=== PATIENT | female | born 1955 | race Caucasian/White ===

== ENCOUNTER → 2020-06-07 | Outpatient (CLI) | payer OTHER | LOC: SJCVC 13:14 | PROVIDERS: ATTEND Internal Medicine | DX: R06.00 Dyspnea, unspecified (principal); I10 Essential (primary) hypertension; E78.5 Hyperlipidemia, unspecified; E11.9 Type 2 diabetes mellitus without complications; G47.33 Obstructive sleep apnea (adult) (pediatric); M06.9 Rheumatoid arthritis, unspecified; J45.909 Unspecified asthma, uncomplicated; R00.2 Palpitations; M17.11 Unilateral primary osteoarthritis, right knee; Z90.710 Acquired absence of both cervix and uterus; Z98.890 Other specified postprocedural states; Z88.0 Allergy status to penicillin; Z79.82 Long term (current) use of aspirin; Z79.84 Long term (current) use of oral hypoglycemic drugs; Z79.899 Other long term (current) drug therapy; Z87.891 Personal history of nicotine dependence ==

== ENCOUNTER → 2020-06-17 | Outpatient (CLI) | payer OTHER | LOC: SJCVCIMAG 07:28 | PROVIDERS: ATTEND Internal Medicine | DX: I08.0 Rheumatic disorders of both mitral and aortic valves (principal); R06.00 Dyspnea, unspecified; J45.909 Unspecified asthma, uncomplicated; I10 Essential (primary) hypertension; G62.9 Polyneuropathy, unspecified; M17.11 Unilateral primary osteoarthritis, right knee; M06.9 Rheumatoid arthritis, unspecified; Z86.79 Personal history of other diseases of the circulatory system; Z22.0 Carrier of typhoid; Z87.891 Personal history of nicotine dependence; Z72.89 Other problems related to lifestyle; Z79.82 Long term (current) use of aspirin; Z79.899 Other long term (current) drug therapy; Z79.84 Long term (current) use of oral hypoglycemic drugs; Z87.39 Personal history of other diseases of the musculoskeletal system and connective tissue; Z88.0 Allergy status to penicillin ==

== ENCOUNTER → 2020-06-21 | Outpatient (CLI) | payer OTHER | LOC: CAT 11:03 | PROVIDERS: ATTEND Internal Medicine | DX: I25.10 Atherosclerotic heart disease of native coronary artery without angina pectoris (principal); N28.1 Cyst of kidney, acquired ==

== ENCOUNTER → 2020-07-09 | Outpatient (CLI) | payer OTHER, MEDICARE ==
[~2020-07-09] MED LIST: ASA81BEC PO; BREO ELLIPTA 11 EACH INH; CELEBREX 200 M200 M1 PO; CYMBALTA60 MG PO; DILTIAZEM ER180 M2 PO; LIPITOR 20 MG T20 M1 PO; LISINOPRIL20 MG PO; METFORMIN HCL500 M3 PO; NEURONTIN600 MG PO; NORCO7.5 PO; PLAQUENIL200 MG PO; PROAIR HFA8.5 GM INH; PROTONIX40 M2 PO; SINGULAIR 10 MG10 MG PO; SYNTHROID137 MC1 PO; WELLBUTRIN XL300 MG PO
== END ==
LOC: SJCVC 13:50
PROVIDERS: ATTEND Internal Medicine
DX: R06.00 Dyspnea, unspecified (principal); I10 Essential (primary) hypertension; E78.5 Hyperlipidemia, unspecified; E11.9 Type 2 diabetes mellitus without complications; G47.33 Obstructive sleep apnea (adult) (pediatric); M06.9 Rheumatoid arthritis, unspecified; R07.9 Chest pain, unspecified; M17.11 Unilateral primary osteoarthritis, right knee; R00.0 Tachycardia, unspecified; I25.10 Atherosclerotic heart disease of native coronary artery without angina pectoris; I25.2 Old myocardial infarction; Z72.89 Other problems related to lifestyle; Z87.891 Personal history of nicotine dependence; Z79.899 Other long term (current) drug therapy; Z79.84 Long term (current) use of oral hypoglycemic drugs; Z79.82 Long term (current) use of aspirin; Z88.0 Allergy status to penicillin

== ENCOUNTER → 2020-07-16 | Outpatient (CLI) | payer OTHER, MEDICARE ==
[~2020-07-16] VITALS: Ht 162.6 cm; Wt 122.0 kg
[2020-07-16 07:31] VITALS: BP 125/59
--- NOTE | 2020-07-16 09:03 | CATHLAB ---
[facility] [place] [address] INVASIVE PROCEDURE REPORT Name: STEPHANIE GALLARDO Room #: [facility] [id number] Admission: 07/16/20 Attend Phys: Tulio Triplett MD, Discharge: Date of : 53 Report #: [id number] THIS REPORT FOR: cc: JACQUELYN THMOAS MD, OSSAMA MD Lundgren,Tulio Garcia MD [facility] ~ APPROVED REPORT Study performed: 07/16/2020 07:29:27 Patient Details Patient Status: Out-Patient Room #: The patient is a 64 year-old female Event Personnel Tulio Triplett Heat Sealing Machine Operator, Lucie Park RTR Monitor, Lissette Thomason RTR, Kalpesh Bell Dexter RN RN, Michell Weber RTR Sheriff Procedures Performed Art Access - R femoral artery* Left Heart Cath w/or w/o Coronaries [id number] [facility] Hemostasis w/ Mynx 64676 Initial Mod Sed Same Phys/QHP Gr5y [id number] Mod Sed Same Phys/QHP Ea [id number] Procedure Narrative The Right Groin^ was infiltrated with 1% Lidocaine subcutaneous anesthesia. A PINNACLE 6FR Sheath #[id number] sheath was inserted into the RFA^. Coronary angiography was performed using coronary diagnostic catheters. The right coronary system was accessed and visualized with a JR4 catheter. The left coronary system was accessed and visualized with a JL4 catheter. The left ventricle was accessed and visualized with a ANGLED PIGTAIL catheter. Left ventriculogram was performed in 30 degree projection. Closure device was deployed with a Fr MYNXGRIP 6/7F #[id number]. The patient tolerated the procedure well and there were no complications associated with the procedure. There was no hematoma. Intraoperative Conscious Sedation Sedation start time: 8:12 Case end Time: 8:41 Fentanyl 75 mcg Versed 2 mg Fluoro Time: 0.90 minutes Dose: DAP 8222.20 cGycm2 [address] [address] INVASIVE PROCEDURE REPORT Name: STEPHANIE GALLARDO Desirae Room #: [facility]#: [id number] Admission: 07/16/20 Attend Phys: Tulio Triplett, Discharge: Date of : 53 Report #: [id number] Contrast Type and Amount: Omnipaque 95 ml Coronary Angiography The patient's coronary anatomy is co- dominant. Diagnostic Cath Left Main Normal left main LAD Normal left anterior descending Diagonal 1 Small normal diagonal branch Diagonal 2 Small second diagonal branch, normal Circumflex Large, codominant circumflex, normal L PDA Normal posterior descending Right Coronary Normal right coronary R PDA Normal posterior descending RPLV Normal posterior lateral Left Ventriculography The left ventricle is normal in size with normal contractility. The left ventricular ejection fraction is estimated to be 60-65%. Left ventricular wall motion abnormalities are not present. There is no mitral insufficiency. Hemodynamics The aortic pressure is 151/66 mmHg with a mean of 106 mmHg. The left ventricular pressure is 166/33 mmHg with a mean of mmHg. The left ventricular end diastolic pressure is 62 mmHg. Conclusion 1. Normal global and regional left ventricular systolic function. EF 65% 2. Normal left main 3. Normal coronary vasculature. Codominant circulation. Recommendations Aggressive Medical Therapy <ELECTRONICALLY SIGNED> By: Tulio Triplett MD, FACC 07/16/20901 1 1 Tulio Triplett MD, FACC /INF
== END | disposition home or self-care (01) ==
LOC: CATH 06:58
PROVIDERS: ATTEND Internal Medicine
DX: R94.39 Abnormal result of other cardiovascular function study (principal); I25.10 Atherosclerotic heart disease of native coronary artery without angina pectoris; I10 Essential (primary) hypertension; E11.9 Type 2 diabetes mellitus without complications; M06.9 Rheumatoid arthritis, unspecified; Z98.890 Other specified postprocedural states; Z79.899 Other long term (current) drug therapy; Z87.891 Personal history of nicotine dependence; Z88.0 Allergy status to penicillin

== ENCOUNTER → 2020-09-08 | Outpatient (CLI) | payer OTHER, MEDICARE ==
--- NOTE | 2020-09-28 15:47 | MCT ---
[facility] [place] [address] METHACHOLINE CHALLENGE TEST Name: STEPHANIE GALLARDO Room #: REG GEETA Weaver#: [id number] Admission: 09/08/20 Attend Phys: Benjie Ahumada MD Discharge: Date of : 53 Report #: [id number] THIS REPORT FOR: //name// COPIES FOR: AGE: 65 SEX/RACE: F/C Height: 64 in Exam Date: Weight: 268 lbs BTPS: X >> PRE BRONCHODILATOR: PREDICTED BEST %PRED FORCED VITAL CAPACITY (FRC) 2.95 L LPM % FORCED EXP VOL/SEC (FEV1) 2.14 L FEV/FVC % MAX MID-EXP FLOW (FEF 25-75) 2.44 L/SEC L/SEC % PEAK EXP FLOW RATE (FEF MAX) 5.60 L/MIN L/MIN MED-VC RATIO (FEF 50/FEF 50) .09 Baseline: Phenol Saline Level 1: 0.025 mg/ml BEST %PRED %CHANGE BEST %PRED %CHANGE FVC 2.70 L 92 % 0 % FVC 2.82 L 96 % 4 % FEV1 1.86 L 87 % 0 % FEV1 2.10 L 98 % 13 % Level 2: 0.25 mg/ml Level 3: 2.5 mg/ml BEST %PRED %CHANGE BEST %PRED %CHANGE FVC 2.73 L 93 % 1 % FVC 2.54 L 86 % -6 % FEV1 1.96 L 92 % 5 % FEV1 1.80 L 84 % -3 % . Level 4: 10 mg/ml Level 5: 25 mg/ml BEST %PRED %CHANGE BEST %PRED %CHANGE FVC 2.49 L 85 % -8 % FVC 2.26 L 77 % -16 % FEV1 1.72 L 80 % -7 % FEV1 1.49 L 70 % -20 % Post Bronchodilator: 1st Treatment Post Bronchodilator: 2nd Treatment BEST %PRED %CHANGE BEST %PRED %CHANGE FVC 2.74 L 93 % 1 % FVC L % % FEV1 1.90 L 89 % 2 % FEV1 L % % Post Bronchodilator: 3rd Treatment BEST %PRED %CHANGE FVC L % % [facility] [address] [place] [address] METHACHOLINE CHALLENGE TEST Name: STEPHANIE GALLARDO Room #: REG [facility].#: [id number] Admission: 09/08/20 Attend Phys: Benjie Ahumada MD Discharge: Date of : 53 Report #: [id number] FEV1 L % % >> INTERPRETATION: DATE OF SERVICE: 09/08/2020 METHACHOLINE CHALLENGE TEST ATTENDING PHYSICIAN: Dr. Benjie Ahumada. Methacholine challenge test was completed in routine fashion. Increasing doses of methacholine were used per guidelines. Baseline FEV1 is 1.98 liters (93% predicted) and FVC started at 2.70 liters (92% predicted). With increasing doses of methacholine, reaching a dose range of 16 and level 6 on the methacholine challenge test, there was a significant decline in her FEV1 and FVC of 20^%. There was a significant response to methacholine challenge as well as bronchodilator performance with recovery of her FEV1 and FVC. IMPRESSION: Methacholine challenge test is positive. <ELECTRONICALLY SIGNED> By: Hari Rg MD 09/28/20 1547 Hari Rg MD /nt
== END ==
LOC: PUL 11:23
PROVIDERS: ATTEND Internal Medicine
DX: Z20.822 Contact with and (suspected) exposure to COVID-19 (principal); J96.11 Chronic respiratory failure with hypoxia; J84.9 Interstitial pulmonary disease, unspecified; Z87.09 Personal history of other diseases of the respiratory system; Z88.0 Allergy status to penicillin